=== PATIENT | male | born 1955 | race American Indian/Alaskan Native ===

== ENCOUNTER 2020-10-03 23:43 | Observation (INO) | payer OTHER ==
[~2020-10-03] VITALS: Ht 172.7 cm; Wt 119.0 kg
[~2020-10-03 23:43] MED LIST: ASPIRIN EC81 MG PO; HYDROCHLOROTHIA25 MG PO; LEVOTHYROXINE50 MCG PO; LISINOPRIL40 MG PO; METFORMIN HCL1000 MG PO; METOPROLOL SUCC25 MG PO; NORCO 5-325 TA1 EACH PO; PERCOCET 5-3251 EACH PO; PYRIDIUM200 MG PO; SIMVASTATIN20 MG PO; TAMSULOSIN HCL0.4 MG PO; VITAMIN D35000 UNIT PO
--- OUTSIDE RECORDS SUMMARY | 2020-10-03 23:46 | XMS ---
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 Care Guidelines exist for the following facilities: [facility] ( 10/10/2018 ) [facility]12 MO.) [facility] NOTE: Visits indicate total known visits. ED/UCC VISIT TRACKING (12 MO.) 10/03/2020 23:44 [facility] [place] TYPE: Emergency COMPLAINT: - RAPID HEART RATE INPATIENT VISIT TRACKING (12 MO.) No inpatient visits to display in this time frame [email or web address]
[2020-10-04] MEDS ORDERED: ATORVASTATIN CA20 MG PO (00:08)
--- NOTE | 2020-10-04 09:10 | EKG ---
[facility] [address] [facility] [place], [place] [address] Signed Atrial flutter with 2:[address] and T wave abnormality Abnormal ECG No previous ECGs available Confirmed by JESÚS MILAN MD ([id number]) on 10/04/2020 9:10:03 AM Electronically Signed By: JESÚS IMLAN MD 10/04/20 0910 PATIENT NAME: [email or web address] Electrocardiogram DATE OF : 59 PHYSICIAN: JESÚS MILAN MD REPORT #: [id number] REPORT IS CONFIDENTIAL AND NOT TO BE RELEASED WITHOUT AUTHORIZATION
[2020-10-04] MEDS ORDERED: TIMOLOL MALEATE5 M2 OU (09:31)
[2020-10-04] MEDS ORDERED: LOSARTAN POTAS100 MG PO (09:33)
[2020-10-04] MEDS ORDERED: HYDROCHLOROTH12.5 MG PO (09:34)
[2020-10-04] MEDS ORDERED: FLUTICASONE PRO16 GM NAS (13:38)
[2020-10-05] MEDS ORDERED: METOPROLOL TART25 MG PO (09:16)
[2020-10-05] MEDS ORDERED: ELIQUIS5 MG PO (09:17)
== END 2020-10-05 12:01 | disposition home or self-care (01) ==
LOC: ED 23:43 → CCU 23:45
PROVIDERS: ADMIT Internal Medicine; ATTEND Internal Medicine
DX: I48.0 Paroxysmal atrial fibrillation (principal); U07.1 COVID-19; I10 Essential (primary) hypertension; E11.9 Type 2 diabetes mellitus without complications; E03.9 Hypothyroidism, unspecified; E78.5 Hyperlipidemia, unspecified; Z88.6 Allergy status to analgesic agent; Z79.84 Long term (current) use of oral hypoglycemic drugs
CPT/HCPCS: 71045; 80053; 83735; 84484; 85025; 93005; 93010; 93306; 96376; C9803; G0378; J1815; J3475; J7030; J7121; U0003